=== PATIENT | male | born 1975 | race Caucasian/White ===

== ENCOUNTER 2023-06-19 13:53 | Emergency (ER) | payer OTHER, SELFPAY ==
[2023-06-19 13:55] VITALS: BP 159/83; PULSE 81; RESP 20; TEMP 36.7; O2SAT 98; BMI 21.1
--- NOTE | 2023-06-19 13:59 | ED_ITS ---
HPI - Recheck/Abnormal Lab/Rx General Chief Complaint: Recheck/Abnormal Lab/Rx Stated Complaint: ELEVATED GLUCOSE LEVELS Time Seen by Provider: 06/19/23 13:59 Source: patient Mode of arrival: ambulance Limitations: no limitations History of Present Illness HPI narrative: Patient brought in via EMS from the [facility] with a complaint of high blood sugar. Patient was being admitted to the [facility] for cocaine abuse. Patient states the last time he used was yesterday states he used 2 g yesterday. While they were doing his assessment his glucose was greater than 500. She states he normally takes Lantus 15 minutes. He has been out of it for several weeks that he has not used any insulin. He also states he is on some oral medication for diabetes but he does not know what it is. Patient states he was just discharged from [facility] 4 days ago for this same problem. He States he also has liver disease. He denies any alcohol abuse. Lives any other drug use. Denies any nausea, vomiting. He denies any chest pain, shortness of breath. He denies any flank pain, hematuria, dysuria. Patient denies any fever, chills, cough or upper respiratory infection symptoms. Related Data Allergies Allergy/AdvReac Type Severity Reaction Status Date / Time No Known Drug Allergies Allergy Verified 06/19/23 13:58 Review of Systems ROS Status of ROS 10 or more systems reviewed and unremarkable except as noted in history and below [facility] Social History Smoking status: Current every day smoker Exam Narrative Exam Narrative: Nurses notes and vital signs reviewed and patient is not hypoxic. General: Nontoxic, Well-appearing and in no apparent distress. Skin: Warm, dry, no pallor noted. No Rash Head: Normocephalic, atraumatic. Neck: Supple, non-tender. Eye: Pupils are equal, round and EOMI. No scleral icterus. Ears, Nose, Mouth, and Throat: TM clear, no posterior oropharynx erythema or nasal mucosal hypertrophy, uvula is mid-line Oral mucosa is moist Cardiovascular: Regular Rate and Rhythm without murmur, gallop or rub. Respiratory: No accessory muscle use or respiratory distress. Lungs are clear to auscultation, no wheezing, rales or rhonchi Chest Wall: no tenderness Back: No midline thoracic or lumbar vertebral tenderness. No CVA tenderness Musculoskeletal: normal ROM, no calf or popliteal tenderness, no lower extremity edema/swelling GI: Abdomen is soft, non-distended. Normal bowel sounds. No masses appreciated. No tenderness to palpation. No rebound, guarding, or rigidity noted. Neurological: A&O x4. No cranial nerve dysfunction observed. No truncal ataxia. Moves all extremities. Sensation intact. Psychiatric: Cooperative and interactive. Normal mood and affect. Constitutional Vital Signs, click to edit/add: Last Vital Signs Temp 98.0 F 06/19/23 13:55 Pulse 76 06/19/23 16:13 Resp 16 06/19/23 16:13 BP 121/75 06/19/23 16:13 Pulse Ox 99 06/19/23 16:13 O2 Del Method Room Air 06/19/23 13:55 Course Vital Signs Vital signs: Vital Signs Temperature 98.0 F 06/19/23 13:55 Pulse Rate 81 06/19/23 13:55 Respiratory Rate 20 06/19/23 13:55 Blood Pressure 159/83 H 06/19/23 13:55 Pulse Oximetry 98 06/19/23 13:55 Oxygen Delivery Method Room Air 06/19/23 13:55 Temperature 98.0 F 06/19/23 13:55 Pulse Rate 76 06/19/23 16:13 Respiratory Rate 16 06/19/23 16:13 Blood Pressure 121/75 06/19/23 16:13 Pulse Oximetry 99 06/19/23 16:13 Oxygen Delivery Method Room Air 06/19/23 13:55 MDM - Recheck/Abnormal Lab/Rx MDM Narrative Medical decision making narrative: I've established. Patient was given 1 L of normal saline. 20 units of insulin given. Glucose recheck was 537. 2nd glucose was 256. Patient is feeling fine. He was eating dinner. Patient is stable. An is advised to comply with his medications. Medical records from [facility] were obtained where reviewed and are part of the medical decision making. Patient was advised all of his medications are at the [facility]. Patient states he didn't get prescriptions I told him that were sent electronically. Patient will follow up with ever and Dr. Gray. At this time the patient is without objective evidence of an acute process requiring hospitalization or inpatient management. The patient has remained hemodynamically stable. No additional indication for emergent studies at this time. I answered all questions. Discussed discharge instructions including standard anticipatory guidance and what should prompt a return to the emergency department, including if they get worse are not getting better or develops any new or concerning symptoms. I've given them specific time frame in which to follow-up, and who to follow-up with. The patient demonstrates understanding. Patient is nontoxic and stable for discharge with outpatient follow-up. This note was created with the assistance of a speech recognition program. Al though the intention is to generate documents that actually reflects the content of the visit, no guarantees can be provided that every mistake has been identified and corrected by editing. Lab Data Attestation: I reviewed the patient's lab results. Labs: Lab Results 06/19/23 06/19/23 Range/Units 14:10 15:20 WBC 9.6 (4.0-11.0) 10^3/uL RBC 4.45 L (4.70-6.10) 10^6/uL Hgb 14.5 (14.0-18.0) g/dL Hct 42.2 (42.0-54.0) % MCV 94.8 H (80.0-94.0) fL MCH 32.6 (25.9-34.0) pg MCHC 34.4 (29.9-35.2) g/dL RDW 12.5 (11.0-15.0) % Plt Count 234 (150-450) 10^3/uL MPV 9.4 L (9.5-13.5) fL Neut % (Auto) 78.8 H (43.0-75.0) % Lymph % (Auto) 13.2 L (20.5-60.0) % Navarro % (Auto) 6.1 (1.7-12.0) % Eos % (Auto) 1.0 (0.9-7.0) % Baso % (Auto) 0.3 (0.2-2.0) % Neut # (Auto) 7.6 H (1.4-6.5) 10^3/uL Lymph # (Auto) 1.3 (1.2-3.8) 10^3/uL Navarro # (Auto) 0.6 (0.3-0.8) 10^3/uL Eos # (Auto) 0.1 (0.0-0.7) 10^3/uL Baso # (Auto) 0.0 (0.0-0.1) 10^3/uL Abs Immat Gran (auto) 0.06 H (0.00-0.03) 10^3/uL Imm/Tot Granulo (auto) 0.6 H (0.0-0.5) % VBG pH 7.360 (7.330-7.430) VBG pCO2 50.5 (40.0-52.0) mmHg Sodium 119 L* (136-145) mmol/L Potassium 3.7 (3.5-5.1) mmol/L Chloride 85 L (98-107) mmol/L Carbon Dioxide 29.0 (21.0-32.0) mmol/L Anion Gap 8.7 BUN 13.0 (7.0-18.0) mg/dL Creatinine 1.35 H (0.70-1.30) mg/dL Est GFR ( Amer) >60 (>=60) Est GFR (Non-Af Amer) 56 L (>=60) BUN/Creatinine Ratio 9.6 Glucose 807 H* (74-106) mg/dL Calcium 9.0 (8.5-10.1) mg/dL Total Bilirubin 0.5 (0.2-1.0) mg/dL AST 15 (15-37) U/L ALT 23 (16-63) U/L Alkaline Phosphatase 181 H (46-116) U/L Total Protein 7.7 (6.4-8.2) g/dL Albumin 3.0 L (3.4-5.0) g/dL Globulin 4.7 g/dL Albumin/Globulin Ratio 0.6 Acetone, Qual Negative (NEGATIVE) POC Glucose 527 H* (74-106) mg/dL Discharge Plan Discharge Chief Complaint: Recheck/Abnormal Lab/Rx Clinical Impression: Hyperglycemia due to diabetes mellitus, Noncompliance with medication regimen Patient Disposition: Home, Self-Care Time of Disposition Decision: 16:40 Condition: Good Mode of Transportation: Private Vehicle Instructions: Diabetic Hyperglycemia (ED) Additional Instructions: make sure you continue to take your diabetes medication as prescribed by her doctor. Stand Alone Forms: Portal Instructions Referrals: TRACY GRAY APRN [Physician] - 1 week
[2023-06-19 14:25] LABS: PCO2 VBG 50.5 mmHg (40.0-52.0)
[2023-06-19 14:26] LABS: Basophils Percent Auto 0.3 % (0.2-2.0); Eosinophils Absolute Auto 0.1 10^3/uL (0.0-0.7); Hematocrit 42.2 % (42.0-54.0); Hemoglobin 14.5 g/dL (14.0-18.0); Immature Granulocytes Abs Auto 0.06 10^3/uL (0.00-0.03); Immature Granulocytes Pct Auto 0.6 % (0.0-0.5); Lymphocytes Absolute Auto 1.3 10^3/uL (1.2-3.8); Lymphocytes Percent Auto 13.2 % (20.5-60.0); Mean Corpuscular HGB Conc 34.4 g/dL (29.9-35.2); Mean Corpuscular Hemoglobin 32.6 pg (25.9-34.0); Mean Corpuscular Volume 94.8 fL (80.0-94.0); Mean Platelet Volume 9.4 fL (9.5-13.5); Monocytes Absolute Auto 0.6 10^3/uL (0.3-0.8); Monocytes Percent Auto 6.1 % (1.7-12.0); Neutrophils Absolute Auto 7.6 10^3/uL (1.4-6.5); Neutrophils Percent Auto 78.8 % (43.0-75.0); Platelet Count 234 10^3/uL (150-450); Red Blood Count 4.45 10^6/uL (4.70-6.10); Red Cell Distribution Width 12.5 % (11.0-15.0); White Blood Count 9.6 10^3/uL (4.0-11.0)
[2023-06-19] MEDS: 0.9 % SODIUM CHLORIDE 1,000 ML 999 ML IV (14:28)
[2023-06-19] MEDS: INSULIN REGULAR 300 UNITS/3 ML 10 UNIT IV ×2 (14:28→15:25)
[2023-06-19 14:43] LABS: Alanine Aminotransferase 23 U/L (16-63); Albumin Globulin Ratio 0.6; Alkaline Phosphatase 181 U/L (46-116); Anion Gap 8.7; Aspartate Amino Transferase 15 U/L (15-37); BUN Creatinine Ratio 9.6; Bilirubin Total 0.5 mg/dL (0.2-1.0); Chloride 85 mmol/L (98-107); Estimated GFR (African America >60 (>=60); Estimated GFR (Non-African Ame 56 (>=60); Globulin 4.7 g/dL; Potassium 3.7 mmol/L (3.5-5.1); Total Protein 7.7 g/dL (6.4-8.2)
[2023-06-19 14:45] LABS: Acetone NEGATIVE (NEGATIVE)
[2023-06-19 14:48] LABS: Glucose 807 mg/dL (74-106)
[2023-06-19 14:51] LABS: Sodium 119 mmol/L (136-145)
[2023-06-19 15:21] LABS: Glucometer 527 mg/dL (74-106)
[2023-06-19 16:13] VITALS: BP 121/75; PULSE 76; RESP 16; O2SAT 99
[2023-06-19 16:54] VITALS: BP 134/79; PULSE 78; RESP 20; O2SAT 99
[2023-06-19 16:59] LABS: Glucometer 256 mg/dL (74-106)
== END 2023-06-19 16:56 | disposition home or self-care (01) ==
PROVIDERS: Emergency Provider Emergency Medicine
DX: E11.65 Type 2 diabetes mellitus with hyperglycemia (principal); T38.3X6A Underdosing of insulin and oral hypoglycemic [antidiabetic] drugs, initial encounter; K76.9 Liver disease, unspecified; F14.10 Cocaine abuse, uncomplicated; F17.210 Nicotine dependence, cigarettes, uncomplicated; Z79.4 Long term (current) use of insulin; Z79.84 Long term (current) use of oral hypoglycemic drugs
CPT/HCPCS: 36415; 80053; 82009; 82800; 85025; 99284